=== PATIENT | male | born 1965 | race Caucasian/White ===

== ENCOUNTER → 2018-09-22 | Outpatient (CLI) | payer OTHER ==
[~2018-09-22] MED LIST: ALBUTEROL SULFATE 0.083% NEB 2.5 MG/3 ML AMPUL NEB ONE
--- NOTE | 2018-09-23 17:32 | Pulmonary Function Test ---
Pulmonary Function Test Date of Procedure:: 09/23/18 INDICATION:: Dyspnea/cough Referring Provider: Dr. Arora Clerk Operator: Lia Jon [employer] APPRENTICE - Report Spirometry: FVC 4.66 L to 92% postbronchodilator 5.04 L 99% FEV1 2.39 L 58% postbronchodilator 2.81 L 68% FEV1/FVC % 51 postbronchodilator 56 predicted 80 FEF 25-75% 0.85 L 21% postbronchodilator 1.13 L 27% % Diffusion Capactity: Diffusion capacity 16 61% DLCO/VA 3.54 87 Impression: Moderate obstructive ventilatory defect with reasonable response to bronchodilator therapy. Mild decrease in diffusion capacity.
== END ==
LOC: RT 07:25
PROVIDERS: ATTEND Radiology Radiation Oncology
DX: C34.91 Malignant neoplasm of unspecified part of right bronchus or lung (principal); J44.9 Chronic obstructive pulmonary disease, unspecified; R06.00 Dyspnea, unspecified
CPT/HCPCS: 94060; 94729

== ENCOUNTER → 2018-10-02 | Outpatient (CLI) | payer OTHER ==
[2018-10-02 09:12] LABS: ABSOLUTE LYMPHOCYTES (AUTO) 0.9 10^3/uL (0.5-4.7); ABSOLUTE MONOCYTES (AUTO) 0.4 10^3/uL (0.1-1.4); ABSOLUTE NEUT (AUTO) 1.1 10^3/uL (1.7-8.2); BASOPHILS % (AUTO) 0.5 % (0-2); EOSINOPHILS % (AUTO) 1.9 % (0-6); HEMATOCRIT 23.6 % (37.9-51.0); HEMOGLOBIN 8.4 g/dL (13.5-17.0); LYMPHOCYTES % (AUTO) 36.2 % (13-45); MEAN CORPUSCULAR HEMOGLOBIN 34.9 pg (27.0-33.4); MEAN CORPUSCULAR HGB CONC 35.6 g/dL (32.0-36.0); MEAN CORPUSCULAR VOLUME 98 fl (80-97); MONOCYTES % (AUTO) 14.7 % (3-13); RED CELL DISTRIBUTION WIDTH 20.8 % (11.5-14.0); SEGMENTED NEUTROPHILS % (AUTO) 46.7 % (42-78); TOTAL CELLS COUNTED % (AUTO) 100 %; WHITE BLOOD COUNT 2.4 10^3/uL (4.0-10.5)
[2018-10-02 09:23] LABS: PLATELET COUNT 64 10^3/uL (150-450)
== END ==
LOC: OD 08:06
PROVIDERS: ATTEND Radiology Radiation Oncology
DX: C34.91 Malignant neoplasm of unspecified part of right bronchus or lung (principal)
CPT/HCPCS: 36415; 85025